=== PATIENT | male | born 1945 | race Caucasian/White ===

== ENCOUNTER 2020-09-14 07:21 | Observation (INO) | payer MEDICARE ==
[~2020-09-14] VITALS: Ht 190.5 cm; Wt 99.6 kg
[2020-09-14] VITALS (10 sets, daily range): BP systolic 55–148; BP diastolic 53–73
[2020-09-14] MEDS ORDERED: 0.9%NACL 1000ML 1,000 ML IV SCH (08:15)
[2020-09-14 08:49] LABS: BASOPHILS % (AUTO) 0.3 % (0.0-5.0); EOSINOPHILS % (AUTO) 0.1 % (0.0-8.0); HEMATOCRIT 41.4 % (42-54); MEAN CORPUSCULAR HEMOGLOBIN 28.8 pg (27.0-33.0); MEAN CORPUSCULAR HGB CONC 32.6 g/dL (32.0-36.0); MEAN CORPUSCULAR VOLUME 88.3 fL (79-99); MONOCYTES % (AUTO) 15.4 % (3.0-13.0); NEUTROPHILS % (AUTO) 70.7 % (40.0-77.0); PLATELET COUNT (AUTO) 324 K/uL (130-400); RED BLOOD CELL COUNT(AUTO) 4.69 MIL/uL (4.50-6.20); RED CELL DISTRIBUTION WIDTH 12.5 % (11.0-15.5); WHITE BLOOD COUNT (AUTO) 10.4 K/uL (4.8-10.8)
[2020-09-14 08:59] LABS: CARBON DIOXIDE 30 mmol/L (21-32); CHLORIDE 98 mmol/L (101-111); GLOMERULAR FILTR. RATE CALC 77 mL/min (>60); GLUCOSE,RANDOM 148 mg/dL (70-105); POTASSIUM 4.5 mmol/L (3.5-5.1); SODIUM SERUM 136 mmol/L (136-145); UREA NITROGEN, BLOOD 12 mg/dL (7-18)
[2020-09-14 09:03] LABS: ALANINE AMINOTRANSFERASE 29 U/L (12-78); ASPARTATE AMINOTRANSFERASE 19 U/L (10-37); BILIRUBIN,TOTAL 0.3 mg/dL (0.2-1.0); TOTAL PROTEIN, SERUM 7.7 g/dL (6.0-8.3)
[2020-09-14 09:14] LABS: LIPASE < 50 U/L (114-286)
[2020-09-14 09:30] LABS: APPEARANCE,URINE Clear (CLEAR); BILIRUBIN,URINE Negative (NEGATIVE); COLOR,URINE Yellow (YELLOW); GLUCOSE, URINE (UA) Negative (NEGATIVE); KETONES,URINE Trace mg/dL (NEGATIVE); LEUKOCYTE ESTERASE ,URINE Moderate (NEGATIVE); NITRATE,URINE Positive (NEGATIVE); OCCULT BLOOD,URINE Trace (NEGATIVE); PH,URINE 5.5 (5.0-8.0); PROTEIN,URINE Trace mg/dL (NEGATIVE)
[2020-09-14] MEDS ORDERED: IOHEXOL 350 MG/ML 100ML INFUS..BTL IV ONE (09:30)
[2020-09-14 09:39] LABS: RBC,URINE 0-1 /HPF (0-1)
[2020-09-14 09:40] LABS: BACTERIA,URINE Few /HPF (None Seen); MUCUS,URINE Rare LPF (None Seen); SQUAMOUS EPITHELIAL CELL,UR Rare /HPF (0-2); WBC,URINE 51-100 /HPF (0-1)
[2020-09-14] MEDS ORDERED: CEFTRIAXONE 1G VIAL ONE (09:49)
[2020-09-14] MEDS ORDERED: CEFTRIAXONE 1G VIAL IVP SCH (10:00)
[2020-09-14] MEDS ORDERED: ONDANSETRON 4MG INJ IV PRN (11:00)
[2020-09-14] MEDS ORDERED: ACETAMINOPHEN 325 MG TAB PO PRN ×2 (11:00)
[2020-09-14] MEDS ORDERED: LACTULOSE 20 GM/30 ML UDCUP PO PRN (11:00)
[2020-09-14] MEDS: PANTOPRAZOLE 40 MG TAB DR PO SCH (11:21)
[2020-09-14] MEDS: 0.9%NACL 1000ML 1,000 ML IV SCH ×2 (11:26→20:09)
[2020-09-15 04:03] VITALS: BP 118/61
[2020-09-15 05:19] LABS: BASOPHILS % (AUTO) 0.2 % (0.0-5.0); EOSINOPHILS % (AUTO) 0.4 % (0.0-8.0); HEMATOCRIT 37.7 % (42-54); LYMPHOCYTES % (AUTO) 20.1 % (21.0-51.0); MEAN CORPUSCULAR HEMOGLOBIN 29.1 pg (27.0-33.0); MEAN CORPUSCULAR HGB CONC 32.9 g/dL (32.0-36.0); MEAN CORPUSCULAR VOLUME 88.5 fL (79-99); NEUTROPHILS % (AUTO) 58.9 % (40.0-77.0); PLATELET COUNT (AUTO) 289 K/uL (130-400); RED BLOOD CELL COUNT(AUTO) 4.26 MIL/uL (4.50-6.20); RED CELL DISTRIBUTION WIDTH 12.7 % (11.0-15.5); WHITE BLOOD COUNT (AUTO) 8.3 K/uL (4.8-10.8)
[2020-09-15 05:30] LABS: POTASSIUM 3.8 mmol/L (3.5-5.1)
[2020-09-15] MEDS: 0.9%NACL 1000ML 1,000 ML IV SCH (06:31)
[2020-09-15 08:18] VITALS: BP 119/63
[2020-09-15] MEDS ORDERED: LEVO750T46 PO (08:33)
[2020-09-15] MEDS ORDERED: POLY17PO4 PO (08:39)
[2020-09-15] MEDS ORDERED: LEVOFLOXACIN 750 MG/D5W 150 ML 150 ML IV SCH (09:00)
[2020-09-15] MEDS ORDERED: POLYETHYLENE GLYCOL 3350 17 GM POWD.PACK PO SCH (09:00)
[2020-09-15] MEDS: PANTOPRAZOLE 40 MG TAB DR PO SCH (09:04)
[2020-09-15] MEDS ORDERED: CEFTRIAXONE 1G VIAL IV SCH (11:00)
[2020-09-15 12:12] VITALS: BP 114/62
== END 2020-09-15 12:30 | disposition home or self-care (01) ==
LOC: EDH 07:21 → EDHIP 10:50 → 3CH 19:22
PROVIDERS: ADMIT Internal Medicine; ATTEND Internal Medicine
DX: K57.30 Diverticulosis of large intestine without perforation or abscess without bleeding (principal); C61 Malignant neoplasm of prostate; K59.00 Constipation, unspecified; M47.815 Spondylosis without myelopathy or radiculopathy, thoracolumbar region; N39.0 Urinary tract infection, site not specified; E78.5 Hyperlipidemia, unspecified; I10 Essential (primary) hypertension; Z85.46 Personal history of malignant neoplasm of prostate; Z88.2 Allergy status to sulfonamides
CPT/HCPCS: 36415 ×2; 71045; 74177; 80048; 80053; 81001; 83605; 83690; 84145; 84484; 85025 ×2; 87040 ×2; 87077; 87088; 87186; 96361 ×2; 96365; 96375; 97161; 99285; G0378 ×25; G8978; G8979; G8980; G8981; G8982; G8983; J0696; J1956; Q9967